=== PATIENT | female | born 1985 | race Caucasian/White ===

== ENCOUNTER 2016-09-17 15:51 | Emergency (ER) | payer OTHER ==
[2016-09-17 18:36] LABS: Hematocrit 41 % (35-47); Hemoglobin 13.3 g/dl (12.0-16.0); Mean Corpuscular HGB Conc 33 g/dl (31-36); Mean Corpuscular Hemoglobin 32 pg (27-31); Mean Corpuscular Volume 97 fL (80-97); Mean Platelet Volume 10 um3 (7.4-10.4); Red Blood Count 4.16 10^6/ul (4.0-5.4); Red Cell Distribution Width 13 % (10.5-15)
[2016-09-17 18:50] LABS: ALT 13 U/L (7-52); AST 12 U/L (13-39); Albumin 4.8 g/dL (3.2-5.2); Alkaline Phosphatase 56 U/L (34-104); Anion Gap 6 mmol/L (2-11); BUN/Creatinine Ratio 10.7 (8-20); Blood Urea Nitrogen 8 mg/dL (6-24); C Reactive Protein < 1.00 mg/L (< 5.00); CO2 Carbon Dioxide 25 mmol/L (22-32); Calcium 9.6 mg/dL (8.6-10.3); Chloride 104 mmol/L (101-111); EGFR African American 116.7 (>60); EGFR Non-African American 90.7 (>60); Globulin 2.4 g/dL (2-4); Glucose 99 mg/dL (70-100); Lipase 23 U/L (11.0-82.0); Potassium 3.9 mmol/L (3.5-5.0); Sodium 135 mmol/L (133-145); Total Protein 7.2 g/dL (6.4-8.9)
[2016-09-17] MEDS ORDERED: oxyCODONE TAB* 5 MG TAB PO ONE ×3 (22:07→23:51)
[2016-09-18 00:06] VITALS: BP 98/62
--- NOTE | 2016-09-18 01:27 | ED ---
I, Oh,Soohyun, scribed for Shawn Blandon MD on 09/17/16 at 2204 . Abdominal Pain/Female - HPI Summary HPI Summary: This 30 y/o female presents to ED for bilat lower abd pain since 2 days ago. Onset of pain was suddent. Positive mild bloating, decreased appetite, or nausea. Negative diarrhea or dysuria. Bumps on road on ride makes pain worse. PMHx includes ovarian cysts, endometriosis, bipolar, anxiety, and PTSD. Pt has not taken any pain med to control pain due to her allergies to NSAIDs. PSHx includes hysterectomy in 01/30/2016. Ovarians are intact. FHx is positive for ovarian cyst. - History of Current Complaint Chief Complaint: EDAbdPain Stated Complaint: PELVIC/ABD PAIN Time Seen by Provider: 09/17/16 21:54 Hx Obtained From: Patient, Medical Records Hx Last Menstrual Period: 09/12/13 Onset/Duration: Sudden Onset, Still Present Pain Intensity: 8 Pain Scale Used: 0-10 Numeric Location: Discrete At: RLQ, Discrete At: LLQ Character: Dull Aggravating Factor(s): Nothing Alleviating Factor(s): Nothing Associated Signs and Symptoms: Positive: Nausea. Negative: Fever, Vomiting, Diarrhea Allergies/Adverse Reactions: Allergies Allergy/AdvReac Type Severity Reaction Status Date / Time NSAIDs Allergy See Comment Verified 09/17/16 15:59 STEROIDS AdvReac DEPRESSION Uncoded 09/17/16 15:58 PMH/Surg Hx/FS Hx/Imm Hx Endocrine/Hematology History: Reports: Hx Thyroid Disease Denies: Hx Anticoagulant Therapy, Hx Diabetes Cardiovascular History: Denies: Hx Hypertension, Hx Pacemaker/ICD Respiratory History: Denies: Hx Asthma, Hx Chronic Obstructive Pulmonary Disease (COPD) GI History: Comment Only: Other GI Disorders - UNCONFRMED REMOTE HISTORY OF IBS History: Denies: Hx Renal Disease Sensory History: Reports: Hx Contacts or Glasses - Patient wears contacts Opthamlomology History: Reports: Hx Contacts or Glasses - Patient wears contacts Neurological History: Denies: Hx Dementia, Hx Seizures Psychiatric History: Reports: Hx Anxiety, Hx Attention Deficit Hyperactivity Disorder, Hx Depression, Hx Bipolar Disorder, Hx Suicide Attempt - twice by overdose, once by cutting wrist, last time overdose last week, Hx Substance Abuse Denies: Hx Eating Disorder - Surgical History Surgery Procedure, Year, and Place: tonsilectomy unsure of date, childhood. laparoscopic uterine proceedure - Immunization History Date of Tetanus Vaccine: unknown Infectious Disease History: No Infectious Disease History: Denies: Hx Hepatitis, Hx Human Immunodeficiency Virus (HIV), Traveled Outside the [place] in Last 30 Days - Social History Alcohol Use: None Substance Use Type: Reports: None Smoking Status (MU): Never Smoked Tobacco Review of Systems Positive: Chills Positive: Abdominal Pain - bilat lower abd pain, Nausea. Negative: Vomiting, Diarrhea Negative: dysuria Positive: Other - chronic back pain All Other Systems Reviewed And Are Negative: Yes Physical Exam - Summary Physical Exam Summary: The patient is well-nourished in no acute distress and in no acute pain. The skin is warm and dry and skin color reflects adequate perfusion. HEENT: The head is normocephalic and atraumatic. The pupils are equal and reactive. The conjunctivae are clear and without drainage. Nares are patent and without drainage. Mouth reveals moist mucous membranes and the throat is without erythema and exudate. The external ears are intact. The ear canals are patent and without drainage. The tympanic membranes are intact. Neck is supple with full range of motion and non-tender. There are no carotid bruits. There is no neck vein distension. Respiratory: Chest is non-tender. Lungs are clear to auscultation and breath sounds are symmetrical and equal. Cardiovascular: Heart is regular rate and rhythm. There is no murmur or rub auscultated. There is no peripheral edema and pulses are symmetrical and equal. Abdomen: The abdomen is soft and TENDER over both ovaries. There are normal bowel sounds heard in all four quadrants and there is no organomegaly palpated. Musculoskeletal: There is no back pain noted. Extremities are non-tender with full range of motion. There is good capillary refill. There is no peripheral edema or calf tenderness elicited. Neurological: Patient is alert and oriented to person, place and time. The patient has symmetrical motor strength in all four extremities. Cranial nerves are grossly intact. Deep tendon reflexes are symmetrical and equal in all four extremities. Psychiatric: The patient has an appropriate affect and does not exhibit any anxiety or depression. Triage Information Reviewed: Yes Vital Signs On Initial Exam: Initial Vitals Temp Pulse Resp BP Pulse Ox 99.0 F 46 16 98/66 100 09/17/16 15:59 09/17/16 15:59 08/07/17 15:59 09/17/16 15:59 09/17/16 15:59 Vital Signs Reviewed: Yes - [place] Coma Scale Coma Scale Total: 15 Diagnostics - Vital Signs Vital Signs Temp Pulse Resp BP Pulse Ox 09/17/16 21:48 98.5 F 46 16 105/61 99 09/17/16 20:30 98.6 F 51 16 108/63 100 09/17/16 18:15 98.6 F 47 12 110/66 100 09/17/16 15:59 99.0 F 46 16 98/66 100 - Laboratory Lab Results: Lab Results 09/17/16 09/17/16 09/17/16 Range/Units 18:27 18:27 18:27 WBC 12.0 H (3.5-10.8) 10^3/ul RBC 4.16 (4.0-5.4) 10^6/ul Hgb 13.3 (12.0-16.0) g/dl Hct 41 (35-47) % MCV 97 (80-97) fL MCH 32 H (27-31) pg MCHC 33 (31-36) g/dl RDW 13 (10.5-15) % Plt Count 250 (150-450) 10^3/ul MPV 10 (7.4-10.4) um3 Neut % (Auto) 75.1 (38-83) % Lymph % (Auto) 17.5 L (25-47) % [place] % (Auto) 5.0 (1-9) % Eos % (Auto) 1.9 (0-6) % Baso % (Auto) 0.5 (0-2) % Absolute Neuts (auto) 9.1 H (1.5-7.7) 10^3/ul Absolute Lymphs (auto) 2.1 (1.0-4.8) 10^3/ul Absolute Monos (auto) 0.6 (0-0.8) 10^3/ul Absolute Eos (auto) 0.2 (0-0.6) 10^3/ul Absolute Basos (auto) 0.1 (0-0.2) 10^3/ul Absolute Nucleated RBC 0 10^3/ul Nucleated RBC % 0 Sodium 135 (133-145) mmol/L Potassium 3.9 (3.5-5.0) mmol/L Chloride 104 (101-111) mmol/L Carbon Dioxide 25 (22-32) mmol/L Anion Gap 6 (2-11) mmol/L BUN 8 (6-24) mg/dL Creatinine 0.75 (0.51-0.95) mg/dL Est GFR ( Amer) 116.7 (>60) Est GFR (Non-Af Amer) 90.7 (>60) BUN/Creatinine Ratio 10.7 (8-20) Glucose 99 (70-100) mg/dL Lactic Acid 0.5 (0.5-2.0) mmol/L Calcium 9.6 (8.6-10.3) mg/dL Total Bilirubin 0.40 (0.2-1.0) mg/dL AST 12 L (13-39) U/L ALT 13 (7-52) U/L Alkaline Phosphatase 56 (34-104) U/L C-Reactive Protein < 1.00 (< 5.00) mg/L Total Protein 7.2 (6.4-8.9) g/dL Albumin 4.8 (3.2-5.2) g/dL Globulin 2.4 (2-4) g/dL Albumin/Globulin Ratio 2.0 (1-3) Lipase 23 (11.0-82.0) U/L Result Diagrams: 09/17/16 18:27 09/17/16 18:27 Lab Statement: Any lab studies that have been ordered have been reviewed, and results considered in the medical decision making process. - Additional Comments Diagnostic Additional Comments: Pelvic US -- Extensive bowel in pelvic region. Re-Evaluation - Re-Evaluation First Eval Re-Evaluation Time: 23:25 Comment: MD in room to re-evaluate pt. Pain is improved at this moment Abdominal Pain Fem Course/Dx - Course Course Of Treatment: This 30 y/o female presents to ED for bilat lower abd pain since 2 days ago. PMHx is significant for known ovarian cyst. Upon examination pt is noted with tenderness over both ovaries. US Pelvis is taken to r/o any new etiology, and indicated NAD. Pt is given oxycodone during ED visit, and pain is improved. Pt requests discharge. - Diagnoses Differential Diagnosis: Positive: Ovarian Cyst, Other - torsion Provider Diagnoses: Pelvic pain Discharge - Discharge Plan Condition: Stable Disposition: HOME Prescriptions: oxyCODONE TAB* [Roxycodone TAB 5 mg*] 5 mg PO Q6H PRN #20 tab MDD 4 PRN Reason: pain Patient Education Materials: Oxycodone/Acetaminophen (By mouth), Pelvic Pain in Women (ED) Referrals: Wes Pan DO [Primary Care Provider] - 2 Days The documentation as recorded by the Kale lópez Soohyun accurately reflects the service I personally performed and the decisions made by me, Shawn Blandon MD.
--- NOTE | 2016-09-18 07:39 | RAD ---
HISTORY: Pelvic pain, status post hysterectomy COMPARISONS: None TECHNIQUE: Multiple transverse and longitudinal ultrasound images were obtained of the pelvis using grayscale, color Doppler, and spectral Doppler imaging using the transabdominal transducer. FINDINGS: UTERUS: The patient is status post partial hysterectomy. The cervical remnant demonstrates nabothian cyst measuring 0.9 x 0.7 x 0.8 cm. ENDOMETRIUM: The patient is status post hysterectomy. CUL-DE-SAC: There is no free fluid within the cul-de-sac. RIGHT OVARY: The right ovary measures 4 x 3 x 2.1 cm. Normal arterial and venous waveforms are identifiable within the ovary on spectral Doppler imaging. LEFT OVARY: The left ovary measures 1.7 x 1.4 x 2.6 cm. Normal arterial and venous waveforms are identifiable within the ovary on spectral Doppler imaging. BLADDER: The visualized bladder is unremarkable. IMPRESSION: 1. STATUS POST HYSTERECTOMY. 2. NO SONOGRAPHIC FEATURES OF TORSION. PLEASE NOTE THAT PARTIAL OR INTERMITTENT TORSION MAY BE SONOGRAPHICALLY NORMAL.
== END 2016-09-18 00:06 | disposition home or self-care (01) ==
LOC: ED 15:51
DX: R10.2 Pelvic and perineal pain (principal); R10.30 Lower abdominal pain, unspecified; M54.9 Dorsalgia, unspecified
CPT/HCPCS: 36415; 76856; 80053; 83605; 83690; 85025; 86140; 99283; A9270-GY

== ENCOUNTER 2018-03-18 11:15 | Inpatient (IN) | payer OTHER ==
[2018-03-18] MEDS ORDERED: Charcoal ACTIVATED* 25 GM/120 ML BTL PO ONE (11:22)
--- NOTE | 2018-03-18 11:22 | ED ---
Substance Abuse/Use - HPI Summary HPI Summary: A 32 y/o female brought in by [facility] presents to [facility] with a chief complaint of a suicide attempt by overdosing on 24 pills of 50 mg Trazodone at 07:00 03/18/18. Per EMS, poison control was notified. The patient arrived in the ED at 11:15 03/18/18. The patient was recently at [facility] for a previous suicide attempt. She has cuts on the right side of her neck from a previous attempt. She reports that previously she was just going crazy but this past time she wanted to kill herself. She reports taking [place] the night of 03/16/18. She recently skipped taking her Seroquel. She has a Hx of split personality, bipolar and anxiety. She denies SOB. SHx hysterectomy. She denies smoking, alcohol or drug use. She has a FHx of depression and DM but denies a FHx of HTN or HLD. - History Of Current Complaint Stated Complaint: OVERDOSE , LACERATIONS,941 Hx Obtained From: Patient, EMS Hx Last Menstrual Period: 09/12/13 Onset/Duration of Drug/ETOH Abuse: Hours Ingestion History: Type/Name Of Drug - Trazodone, Amount Ingested - 24 50mg pills Overdose Characteristics: Oral Timing Of Abuse: Binge Use Severity Currently: Moderate Character: Depressed Aggravating Factor(s): Nothing Alleviating Factor(s): Nothing Associated Signs And Symptoms: Negative - SOB, Other: - SI Related Hx: Prior Psych Admission - Allergies/Home Medications Allergies/Adverse Reactions: Allergies Allergy/AdvReac Type Severity Reaction Status Date / Time NSAIDS (Non-Steroidal Allergy See Comment Verified 03/18/18 11:42 Anti-Inflamma STEROIDS AdvReac DEPRESSION Uncoded 03/18/18 11:42 Home Medications: Home Medications Docusate Sodium [Doc-Q-Lace] 1 cap PO BID 03/18/18 [History Confirmed 03/18/18] Fluoxetine HCl [Prozac] 1 cap PO DAILY 03/18/18 [History Confirmed 03/18/18] [place] Carbonate TAB* 300 mg PO TID 03/18/18 [History Confirmed 03/18/18] QUEtiapine TAB* [Seroquel 25 MG TAB*] 25 mg PO BEDTIME 03/18/18 [History Confirmed 03/18/18] Topiramate 25 mg PO BID 03/18/18 [History Confirmed 03/18/18] PMH/Surg Hx/FS Hx/Imm Hx Endocrine/Hematology History: Reports: Hx Thyroid Disease Denies: Hx Anticoagulant Therapy, Hx Diabetes Cardiovascular History: Denies: Hx Hypercholesterolemia, Hx Hypertension, Hx Pacemaker/ICD Respiratory History: Denies: Hx Asthma, Hx Chronic Obstructive Pulmonary Disease (COPD) GI History: Comment Only: Other GI Disorders - UNCONFRMED REMOTE HISTORY OF IBS History: Denies: Hx Renal Disease Sensory History: Reports: Hx Contacts or Glasses - Patient wears contacts Opthamlomology History: Reports: Hx Contacts or Glasses - Patient wears contacts Neurological History: Denies: Hx Dementia, Hx Seizures Psychiatric History: Reports: Hx Anxiety, Hx Attention Deficit Hyperactivity Disorder, Hx Depression, Hx Bipolar Disorder, Hx Suicide Attempt - twice by overdose, once by cutting wrist, last time overdose last week, Hx Substance Abuse Denies: Hx Eating Disorder - Surgical History Surgery Procedure, Year, and Place: tonsilectomy unsure of date, childhood. laparoscopic uterine proceedure - Immunization History Date of Tetanus Vaccine: unknown Infectious Disease History: Denies: Hx Hepatitis, Hx Human Immunodeficiency Virus (HIV) - Family History Known Family History: Positive: Diabetes, Other - positive: depression Negative: Hypertension - Social History Alcohol Use: None Substance Use Type: Reports: None Smoking Status (MU): Never Smoked Tobacco Review of Systems Negative: Fever Negative: Shortness Of Breath Positive: Other - positive: lacerations right neck Psychological: Other - postitive: Suicide attempt taking 24 pills of 50 mg Trazodone All Other Systems Reviewed And Are Negative: Yes Physical Exam - Summary Physical Exam Summary: VITAL SIGNS: Reviewed. GENERAL: Patient is a well-developed and nourished FEMALE who is lying comfortable in the stretcher. Patient is not in any acute respiratory distress. HEAD AND FACE: No signs of trauma. No ecchymosis, hematomas or skull depressions. No sinus tenderness. EYES: PERRLA, EOMI x 2, No injected conjunctiva, no nystagmus. EARS: Hearing grossly intact. Ear canals and tympanic membranes are within normal limits. MOUTH: Oropharynx within normal limits. NECK: superficial cuts right side of neck Supple, trachea is midline, no adenopathy, no JVD, no carotid bruit, no c-spine tenderness, neck with full ROM. CHEST: Symmetric, no tenderness at palpation LUNGS: Clear to auscultation bilaterally. No wheezing or crackles. CVS: Regular rate and rhythm, S1 and S2 present, no murmurs or gallops appreciated. ABDOMEN: Soft, non-tender. No signs of distention. No rebound no guarding, and no masses palpated. Bowel sounds are normal. EXTREMITIES: FROM in all major joints, no edema, no cyanosis or clubbing. NEURO: Alert and oriented x 3. No acute neurological deficits. Speech is normal and follows commands. SKIN: Dry and warm Psych: Seems to be depressed, low self esteem Triage Information Reviewed: Yes Vital Signs On Initial Exam: Initial Vitals Temp Pulse Resp BP Pulse Ox 99.0 F 93 17 117/76 100 03/18/18 11:26 03/18/18 11:26 03/18/18 11:26 03/18/18 11:26 03/18/18 11:26 Vital Signs Reviewed: Yes Diagnostics - Laboratory Result Diagrams: 03/18/18 11:50 03/18/18 11:50 Lab Statement: Any lab studies that have been ordered have been reviewed, and results considered in the medical decision making process. - EKG 11:26 Cardiac Rate: NL - 66 bpm EKG Rhythm: Sinus Rhythm Summary of EKG Findings: Normal sinus rhythm at [address] elevation but slightly prolonged QT interval Re-Evaluation - Re-Evaluation First Eval Re-Evaluation Time: 16:50 Change: Improved Comment: Patient is medically cleared for MHE Course/Dx - Course Assessment/Plan: Blood work without any significant abnormality except for what was a count of 11.8. EKG shows a normal sinus rhythm without any ST elevation. Discussed the case with the poison control and they do not recommend any activity charcoal at this point. The recommended 2 g of magnesium and IV fluids. They also recommended to observe the patient for approximately 6 hours from the time of arrival. Patient will be medically clear at 5 PM. 5 PM the patient is medically clear. The patients alert and oriented 3 and she has no complaints. Patient is awaiting for mental health evaluation. This patient will be admitted to Dr. Gann with dx of psychosis. - Diagnoses Differential Diagnosis/HQI/PQRI: Positive: Anxiety, Other - OD, Suicidal ideation and Gesture Provider Diagnoses: Psychosis Discharge - Sign-Out/Discharge Documenting (check all that apply): Patient Departure - admit Patient Received Moderate/Deep Sedation with Procedure: No - Discharge Plan Condition: Stable Disposition: ADMITTED TO [facility] - Billing Disposition and Condition Condition: STABLE Disposition: Admitted to [facility] - Attestation Statements Document Initiated by Alvinibe: Yes Documenting Scribe: Danny Henao Provider For Whom Scribe is Documenting (Include Credential): Ismael Valenzuela MD Scribe Attestation: IDanny, scribed for Ismael Valenzuela MD on 03/18/18 at 2117. Scribe Documentation Reviewed: Yes Provider Attestation: The documentation as recorded by the Danny lópez accurately reflects the service I personally performed and the decisions made by , Ismael Valenzuela MD Status of Scribe Document: Viewed
[2018-03-18 12:03] LABS: Urine Appearance Cloudy; Urine Bilirubin Negative (Negative); Urine Blood Negative (Negative); Urine Color Yellow; Urine Glucose 1+(50 mg/dL) (Negative); Urine Ketones Negative (Negative); Urine Nitrite Negative (Negative); Urine Protein Negative (Negative); Urine Specific Gravity 1.016 (1.010-1.030); Urine Urobilinogen Negative (Negative)
[2018-03-18 12:10] LABS: ABS Basophils 0.1 10^3/ul (0-0.2); ABS Eosinophils 0 10^3/ul (0-0.6); ABS Lymphocytes 0.7 10^3/ul (1.0-4.8); ABS Monocytes 0.6 10^3/ul (0-0.8); ABS Neutrophils 10.4 10^3/ul (1.5-7.7); ABS Nucleated RBC 0 10^3/ul; Eosinophil % 0.1 %; Hematocrit 39 % (35-47); Hemoglobin 13.3 g/dl (12.0-16.0); Lymphocyte % 6.2 %; Mean Corpuscular HGB Conc 34 g/dl (31-36); Mean Corpuscular Hemoglobin 32 pg (27-31); Mean Corpuscular Volume 94 fL (80-97); Nucleated Red Blood Cells % 0; Platelet Count 208 10^3/ul (150-450); Red Blood Count 4.11 10^6/ul (4.00-5.40); Red Cell Distribution Width 13 % (10.5-15); White Blood Count 11.8 10^3/ul (3.5-10.8)
[2018-03-18 12:17] LABS: Barbiturates Urine Screen None Detected (None Detect); Benzodiazepine Urine Screen None Detected (None Detect); Urine Cannabinoids Screen None Detected (None Detect)
[2018-03-18] MEDS ORDERED: Magnesium Sulfate 2 GM IV* 2 GM/50 ML BAG IVPB ONE (12:25)
[2018-03-18 12:36] LABS: ALT 38 U/L (7-52); AST 21 U/L (13-39); Albumin 4.5 g/dL (3.2-5.2); Albumin/Globulin Ratio 2.1 (1-3); Alkaline Phosphatase 55 U/L (34-104); Anion Gap 11 mmol/L (2-11); BUN/Creatinine Ratio 25.4 (8-20); Blood Urea Nitrogen 17 mg/dL (6-24); CO2 Carbon Dioxide 23 mmol/L (22-32); Calcium 9.4 mg/dL (8.6-10.3); Chloride 103 mmol/L (101-111); EGFR African American 123.4 (>60); Globulin 2.1 g/dL (2-4); Glucose 99 mg/dL (70-100); Potassium 3.5 mmol/L (3.5-5.0); Sodium 137 mmol/L (135-145); Total Protein 6.6 g/dL (6.4-8.9)
[2018-03-18 12:49] LABS: Acetaminophen < 15 mcg/mL; Alcohol < 10 mg/dL (<10); Lithium < 0.10 mmol/L (0.6-1.2); Salicylate < 2.50 mg/dL (<30)
[2018-03-18] MEDS: NS 0.9% 1000 ML** 2,000 ML IV ONE ×2 (13:25→14:18)
[2018-03-18] MEDS ORDERED: Al Hydrox/Mg Hydrox/Simet LIQ* 30 ML UDC PO PRN (20:39)
[2018-03-18] MEDS ORDERED: risperiDONE TAB* 1 MG PO SCH (21:30)
[2018-03-18] MEDS: Lithium Carbonate TAB* 300 MG PO SCH (21:48)
[2018-03-18] MEDS: Docusate CAP* 100 MG PO SCH (21:50)
[2018-03-18] MEDS: Topiramate TAB(*) 25 MG PO SCH (21:50)
[2018-03-18] MEDS: traZODone TAB* 100 MG PO SCH ×2 (21:50→22:13)
[2018-03-18] MEDS: Acetaminophen TAB* 325 MG PO PRN (21:58)
[2018-03-19] MEDS: Docusate CAP* 100 MG PO SCH ×2 (08:53→21:24)
[2018-03-19] MEDS: Multivitamins/Minerals TAB PO SCH (08:53)
[2018-03-19] MEDS: Lithium Carbonate TAB* 300 MG PO SCH ×3 (08:53→21:24)
[2018-03-19] MEDS: Topiramate TAB(*) 25 MG PO SCH ×2 (08:54→21:24)
[2018-03-19] MEDS ORDERED: FLUoxetine CAP* 20 MG PO SCH (09:00)
--- NOTE | 2018-03-19 11:39 | PN ---
MHU: Group Therapy Note - Service Type Service Type: [id number] Group Psychotherapy - Cognitive Behavioral Group Therapy ( CBT):Patient was attentive and participatory in CBT programming this morning, and remained in good behavioral control. Patient expressed positive insights regarding relevant treatment interventions and goals.
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
[2018-03-19] MEDS ORDERED: ARIPiprazole TAB* 5 MG PO SCH (12:00)
--- NOTE | 2018-03-19 16:02 | PN ---
MHU: Group Therapy Note - Service Type Service Type: [id number] Group Psychotherapy - Medication Education Group: Patient was attentive and participatory in group, and remained in good behavioral control. Patient expressed positive insights regarding relevant treatment interventions. Patient stated understanding of material discussed and had appropriate questions.
[2018-03-19] MEDS: Mirtazapine TAB* 15 MG PO PRN (21:25)
[2018-03-20 07:15] LABS: Cholesterol 118 mg/dL; HDL Cholesterol 52.4 mg/dL; LDL Cholesterol 58 mg/dL; Triglycerides 37 mg/dL
[2018-03-20 07:23] LABS: HCG Pregnancy < 0.60 mIU/mL
[2018-03-20 07:32] LABS: Lithium 0.33 mmol/L (0.6-1.2)
[2018-03-20] MEDS: Lithium Carbonate TAB* 300 MG PO SCH ×3 (09:01→21:10)
[2018-03-20] MEDS: Topiramate TAB(*) 25 MG PO SCH ×2 (09:01→21:10)
[2018-03-20] MEDS: Docusate CAP* 100 MG PO SCH ×2 (09:01→21:10)
[2018-03-20] MEDS: Multivitamins/Minerals TAB PO SCH (09:02)
[2018-03-20] MEDS ORDERED: Lithium Carbonate TAB* 300 MG PO SCH (10:00)
--- NOTE | 2018-03-20 11:23 | PN ---
Subjective - Subjective Date of Service: 03/20/18 Service Type: 16730 Hosp care 25 min moderate complexity Subjective: Nursing Report: Patient was visible on unit, no chemical restraints or PRNs. Slept overnight without incident. Attending group. CC: "I am doing better Patient was seen and evaluated by brief writer today in the day room. She woke up and did yoga today. She reported not having a better appetite and slept well overnight. She reported feeling somewhat groggy yesterday. The patient reports attending and participating in day groups. Per nursing no behavioral issues or overnight events reported. She denied auditory and or visual hallucinations. She reported feeling safe on the unit. She reported that she was only taking 300mg lithium a day before admission and that could explain her low lithium levels. Objective - Appearance Dysmorphic Features: No Hygiene: Normal Grooming: Well Kept - Behavior Psychomotor Activities: Normal Exhibits Abnormal Movement: No - Attitude and Relatedness Attitude and Relatedness: Cooperative Eye Contact: Fair - Speech Quality: Unpressured Latencies: Normal Quantity: Appropriate - Mood Patient's Decription of Mood: "Good" - Affect Observed Affect: Non-labile Affect Consistent with: Euthymia - Thought Process Patient's Thought Process: Goal Directed Thought Content: No Passive Wish, No Suicidal Planning, No Homicidal Ideation, No Paranoid Ideation - Sensorium Experiencing Hallucinations: No, Sensorium is Clear Type of Hallucinations: Visual: No, Auditory: No, Command: No - Level of Consciousness Level of Consciousness: Alert Orientation: Yes Intact, Yes Orientated to Time, Yes Orientated to Place, Yes Orientated to Person - Impulse Control Impulse Control: Poor - Insight and Judgement Insight and Judgement: Fair - Group Participation Particating in Group Activities: Yes - Medication Management Medication Management Adherence: Yes Assessment - Assessment Clinical Impression: Assessment: 32year old single female with history of bipolar I disorder and PTSD came to the hospital after a suicide attempt and was admitted to the BSU at [facility]. She has been attending group and has shown some clinical response to treatment Plan - Plan Treatment Plan: Name: INDIRA ELKINS Birthdate: 1985 [id number] # Justification for Admission: For immediate safety # Voluntary admission. The patient requires inpatient admission at this time to assure safety, receive treatment and work toward stabilization. #Change abilify 5mg PO to bedtime #Continue remeron 15mg qhs. #Continue lithium 300mg TID #Continue topiramate 25mg BID #[place] level 0.33 will recheck Saturday #Q30 observation #Admit to BSU, Q15 minute observation. Start regular diet. Encourage participation in activities on the milieu. # Plan to obtain collateral from mother once release is signed. #Goals before discharge include: Improve sleep. Stopping auditory hallucinations and suicidal ideation. Laboratory Results - last 24 hr 03/20/18 03/20/18 06:47 06:47 Hemoglobin A1c 4.5 Triglycerides 37 Cholesterol 118 LDL Cholesterol 58 HDL Cholesterol 52.4 Beta HCG, Quant < 0.60 [place] 0.33 L Continued Medication Management: Start Medication Medications: Current Medications Acetaminophen (Tylenol Tab*) 650 mg PO Q4H PRN PRN Reason: PAIN; OR TEMP >101 Last Admin: 03/18/18 21:58 Dose: 650 mg Al Hydrox/Mg Hydrox/Simethicone (Maalox Plus*) 30 ml PO Q4H PRN PRN Reason: INDIGESTION Aripiprazole (Abilify Tab*) 5 mg PO BEDTIME [facility] Docusate Sodium (Colace Cap*) 100 mg PO BID [facility] Last Admin: 03/20/18 09:01 Dose: 100 mg [place] Carbonate ([place] Carbonate Tab*) 300 mg PO TID [facility] Last Admin: 03/20/18 09:01 Dose: 300 mg Mirtazapine (Remeron Tab*) 15 mg PO BEDTIME PRN PRN Reason: SLEEP Last Admin: 03/19/18 21:25 Dose: 15 mg Multivitamins/Minerals (Theragran/Minerals Tab*) 1 tab PO DAILY [facility] Last Admin: 03/20/18 09:02 Dose: 1 tab Topiramate (Topamax(*)) 25 mg PO BID [facility] Last Admin: 03/20/18 09:01 Dose: 25 mg - Discharge Plan Discharge Plan: Inpatient Hospitalization
--- NOTE | 2018-03-20 13:13 | PN ---
MHU: Group Therapy Note - Service Type Service Type: 48438 Group Psychotherapy - Cognitive Behavioral Group Therapy ( CBT):Patient was attentive and participatory in CBT programming this morning, and remained in good behavioral control. Patient expressed positive insights regarding relevant treatment interventions and goals.
[2018-03-20] MEDS ORDERED: ARIPiprazole TAB* 5 MG PO SCH (21:00)
[2018-03-20] MEDS: Mirtazapine TAB* 15 MG PO PRN (21:10)
[2018-03-21] MEDS: Docusate CAP* 100 MG PO SCH ×2 (08:57→20:07)
[2018-03-21] MEDS: Lithium Carbonate TAB* 300 MG PO SCH ×3 (08:57→20:07)
[2018-03-21] MEDS: Topiramate TAB(*) 25 MG PO SCH ×2 (08:57→20:07)
[2018-03-21] MEDS: Multivitamins/Minerals TAB PO SCH (08:57)
--- NOTE | 2018-03-21 11:39 | PN ---
Subjective - Subjective Date of Service: 03/21/18 Service Type: 30661 Hosp care 25 min moderate complexity Subjective: Nursing Report: Patient was visible on unit, no chemical restraints or PRNs. Slept overnight without incident. Attending group. CC: "I am okay Patient was seen and evaluated by telegraphic typewriter installer today in the day room. She reported that she refused the abilify last night because it is not right for her. She reported having a adequate appetite and slept well overnight. The patient reports attending and participating in day groups. Per nursing no behavioral issues or overnight events reported. She denied auditory and or visual hallucinations. She reported feeling safe on the unit. Objective - Appearance Dysmorphic Features: No Hygiene: Normal Grooming: Well Kept - Behavior Psychomotor Activities: Normal Exhibits Abnormal Movement: No - Attitude and Relatedness Attitude and Relatedness: Cooperative Eye Contact: Fair - Speech Quality: Unpressured Latencies: Normal Quantity: Appropriate - Mood Patient's Decription of Mood: "Good" - Affect Observed Affect: Non-labile Affect Consistent with: Euthymia - Thought Process Patient's Thought Process: Goal Directed Thought Content: No Passive Wish, No Suicidal Planning, No Homicidal Ideation, No Paranoid Ideation - Sensorium Experiencing Hallucinations: No, Sensorium is Clear Type of Hallucinations: Visual: No, Auditory: No, Command: No - Level of Consciousness Level of Consciousness: Alert Orientation: Yes Intact, Yes Orientated to Time, Yes Orientated to Place, Yes Orientated to Person - Impulse Control Impulse Control: Intact - Insight and Judgement Insight and Judgement: Fair - Group Participation Particating in Group Activities: Yes - Medication Management Medication Management Adherence: Yes Assessment - Assessment Clinical Impression: Assessment: 32year old single female with history of bipolar I disorder and PTSD came to the hospital after a suicide attempt and was admitted to the BSU at [facility]. She has been attending group and has shown some clinical response to treatment Plan - Plan Treatment Plan: Name: INDIRA ELKINS Birthdate: 1985 [id number] # Justification for Admission: For immediate safety # Voluntary admission. The patient requires inpatient admission at this time to assure safety, receive treatment and work toward stabilization. #D/C abilify #Start Haldol 2mg at bedtime #Continue remeron 15mg qhs. #Continue lithium 300mg TID #Continue topiramate 25mg BID #[place] level 0.33 will recheck Saturday #Q30 observation #Staff pass #Goals before discharge include: Improve sleep. Stopping auditory hallucinations and suicidal ideation. Laboratory Results - last 24 hr 03/20/18 03/20/18 06:47 06:47 Hemoglobin A1c 4.5 Triglycerides 37 Cholesterol 118 LDL Cholesterol 58 HDL Cholesterol 52.4 Beta HCG, Quant < 0.60 [place] 0.33 L Continued Medication Management: Start Medication Medications: Current Medications Acetaminophen (Tylenol Tab*) 650 mg PO Q4H PRN PRN Reason: PAIN; OR TEMP >101 Last Admin: 03/18/18 21:58 Dose: 650 mg Al Hydrox/Mg Hydrox/Simethicone (Maalox Plus*) 30 ml PO Q4H PRN PRN Reason: INDIGESTION Aripiprazole (Abilify Tab*) 5 mg PO BEDTIME [facility] Last Admin: 03/20/18 21:11 Dose: Not Given Docusate Sodium (Colace Cap*) 100 mg PO BID [facility] Last Admin: 03/21/18 08:57 Dose: 100 mg [place] Carbonate ([place] Carbonate Tab*) 300 mg PO TID [facility] Last Admin: 03/21/18 08:57 Dose: 300 mg Mirtazapine (Remeron Tab*) 15 mg PO BEDTIME PRN PRN Reason: SLEEP Last Admin: 03/20/18 21:10 Dose: 15 mg Multivitamins/Minerals (Theragran/Minerals Tab*) 1 tab PO DAILY [facility] Last Admin: 03/21/18 08:57 Dose: 1 tab Topiramate (Topamax(*)) 25 mg PO BID [facility] Last Admin: 03/21/18 08:57 Dose: 25 mg - Discharge Plan Discharge Plan: Inpatient Hospitalization
[2018-03-21] MEDS: Haloperidol TAB* 1 MG PO SCH (20:07)
[2018-03-22] MEDS: Lithium Carbonate TAB* 300 MG PO SCH ×3 (08:45→21:01)
[2018-03-22] MEDS: Topiramate TAB(*) 25 MG PO SCH ×2 (08:45→21:00)
[2018-03-22] MEDS: Docusate CAP* 100 MG PO SCH ×2 (08:45→21:00)
[2018-03-22] MEDS: Multivitamins/Minerals TAB PO SCH (08:45)
[2018-03-22] MEDS: Haloperidol TAB* 1 MG PO SCH (21:02)
[2018-03-23] MEDS: Multivitamins/Minerals TAB PO SCH (08:27)
[2018-03-23] MEDS: Lithium Carbonate TAB* 300 MG PO SCH ×3 (08:27→21:01)
[2018-03-23] MEDS: Docusate CAP* 100 MG PO SCH ×2 (08:27→21:00)
[2018-03-23] MEDS: Topiramate TAB(*) 25 MG PO SCH ×2 (08:28→21:00)
[2018-03-23] MEDS: Acetaminophen TAB* 325 MG PO PRN (08:28)
--- NOTE | 2018-03-23 19:09 | PN ---
Subjective - Subjective Date of Service: 03/23/18 Service Type: 86302 Hosp care 15 min low complexity Subjective: Indira reports that her thoughts are mostly clear with some paranoia still there. She doesn't want to continue to take Haldol and would like to work things out with her outpatient psychiatrist after discharge. Denies any hallucinations, SI or HI. Objective - Appearance Appearance: Healthy Appearing Dysmorphic Features: No Hygiene: Normal Grooming: Fairly Well Kept - Behavior Psychomotor Activities: Normal Exhibits Abnormal Movement: No - Attitude and Relatedness Attitude and Relatedness: Cooperative Eye Contact: Fair - Speech Quality: Unpressured Latencies: Normal Quantity: Appropriate - Mood Patient's Decription of Mood: "Okay" - Affect Observed Affect: Non-labile Affect Consistent with: Euthymia - Thought Process Patient's Thought Process: Coherent, Goal Directed Thought Content: No Passive Wish, No Suicidal Planning, No Homicidal Ideation, No Paranoid Ideation - Sensorium Experiencing Hallucinations: No, Sensorium is Clear Type of Hallucinations: Visual: No, Auditory: No, Command: No - Level of Consciousness Level of Consciousness: Alert Orientation: Yes Intact, Yes Orientated to Time, Yes Orientated to Place, Yes Orientated to Person - Impulse Control Impulse Control: Tenuous - Insight and Judgement Insight and Judgement: Poor - Group Participation Particating in Group Activities: Yes - Medication Management Medication Management Adherence: Partial Assessment - Assessment Merits Inpatient Hospitalization: For Immediate Safety, For Stabilization, For Ongoing Evaluation Clinical Impression: Assessment: 32year old single female with history of bipolar I disorder and PTSD came to the hospital after a suicide attempt and was admitted to the BSU at [facility]. She has been attending group and has shown some clinical response to treatment Plan - Plan Treatment Plan: Name: INDIRA ELKINS Birthdate: 1985 [id number] # Justification for Admission: For immediate safety # Voluntary admission. The patient requires inpatient admission at this time to assure safety, receive treatment and work toward stabilization. #D/C abilify #Start Haldol 2mg at bedtime #Continue remeron 15mg qhs. #Continue lithium 300mg TID #Continue topiramate 25mg BID #[place] level 0.33 will recheck Saturday #Q30 observation #Staff pass #Goals before discharge include: Improve sleep. Stopping auditory hallucinations and suicidal ideation. Laboratory Results - last 24 hr 03/20/18 03/20/18 06:47 06:47 Hemoglobin A1c 4.5 Triglycerides 37 Cholesterol 118 LDL Cholesterol 58 HDL Cholesterol 52.4 Beta HCG, Quant < 0.60 [place] 0.33 L Continued Medication Management: Continue Outpt Medication Medications: Current Medications Acetaminophen (Tylenol Tab*) 650 mg PO Q4H PRN PRN Reason: PAIN; OR TEMP >101 Last Admin: 03/23/18 08:28 Dose: 650 mg Al Hydrox/Mg Hydrox/Simethicone (Maalox Plus*) 30 ml PO Q4H PRN PRN Reason: INDIGESTION Docusate Sodium (Colace Cap*) 100 mg PO BID [facility] Last Admin: 03/23/18 08:27 Dose: 100 mg Haloperidol (Haldol Tab*) 2 mg PO BEDTIME [facility] Last Admin: 03/22/18 21:02 Dose: Not Given [place] Carbonate ([place] Carbonate Tab*) 300 mg PO TID [facility] Last Admin: 03/23/18 15:22 Dose: 300 mg Mirtazapine (Remeron Tab*) 15 mg PO BEDTIME PRN PRN Reason: SLEEP Last Admin: 03/20/18 21:10 Dose: 15 mg Multivitamins/Minerals (Theragran/Minerals Tab*) 1 tab PO DAILY [facility] Last Admin: 03/23/18 08:27 Dose: 1 tab Topiramate (Topamax(*)) 25 mg PO BID [facility] Last Admin: 03/23/18 08:28 Dose: 25 mg - Discharge Plan Discharge Plan: Outpatient Follow Up Outpatient Program: [facility]
[2018-03-23] MEDS: Haloperidol TAB* 1 MG PO SCH (21:01)
[2018-03-24] MEDS: Multivitamins/Minerals TAB PO SCH (09:23)
[2018-03-24] MEDS: Docusate CAP* 100 MG PO SCH ×2 (09:23→21:37)
[2018-03-24] MEDS: Topiramate TAB(*) 25 MG PO SCH ×2 (09:24→21:37)
[2018-03-24] MEDS: Lithium Carbonate TAB* 300 MG PO SCH ×2 (09:26→21:37)
[2018-03-24] MEDS: CMC:Lactase Enzyme (NF) 3,000 UNIT TAB PO SCH ×3 (09:28→16:50)
--- NOTE | 2018-03-24 10:03 | PN ---
Subjective - Subjective Date of Service: 03/24/18 Service Type: 85034 Hosp care 25 min moderate complexity Subjective: Nursing Report: Patient was visible on unit, no chemical restraints or PRNs. Slept overnight without incident. Attending group. CC: "Okay Patient was seen and evaluated by typewriters functional tester today in the day room. She reported that she doesnt think that the haldol is good for her and would like to stay just on lithium. She reported having a reminder of triggers for a past trauma she experienced and was able to deflect getting worked up over it. She would like to return to [facility] after discharge. She is requesting a diet that is lactose free. Her family came to visit over the weekend and the visit went well. She reported having a adequate appetite and slept well overnight. The patient reports attending and participating in day groups. Per nursing no behavioral issues or overnight events reported. She denied auditory and or visual hallucinations. She reported feeling safe on the unit. She denied fever, muscle stiffness. Objective - Appearance Dysmorphic Features: No Hygiene: Normal Grooming: Fairly Well Kept - Behavior Psychomotor Activities: Normal Exhibits Abnormal Movement: No - Attitude and Relatedness Attitude and Relatedness: Guarded Eye Contact: Fair - Speech Quality: Unpressured Latencies: Long Quantity: Terse - Mood Patient's Decription of Mood: "Okay" - Affect Observed Affect: Constricted Affect Consistent with: Euthymia - Thought Process Patient's Thought Process: Impoverished Thought Content: No Passive Wish, No Suicidal Planning, No Homicidal Ideation, No Paranoid Ideation - Sensorium Experiencing Hallucinations: No, Sensorium is Clear Type of Hallucinations: Visual: No, Auditory: No, Command: No - Level of Consciousness Level of Consciousness: Alert Orientation: Yes Intact, Yes Orientated to Time, Yes Orientated to Place - Impulse Control Impulse Control: Impaired - Insight and Judgement Insight and Judgement: Fair - Group Participation Particating in Group Activities: Yes - Medication Management Medication Management Adherence: Partial Assessment - Assessment Clinical Impression: Assessment: 32year old single female with history of bipolar I disorder and PTSD came to the hospital after a suicide attempt and was admitted to the BSU at [facility]. She has been attending group and has shown some clinical response to treatment Plan - Plan Treatment Plan: Name: INDIRA ELKINS Birthdate: 1985 [id number] # Justification for Admission: For immediate safety # Voluntary admission. The patient requires inpatient admission at this time to assure safety, receive treatment and work toward stabilization. #D/C Abilify #D/C Haldol and Remeron #Lactose free diet #Change lithium 450mg BID #Continue topiramate 25mg BID #[place] level 0.47 #Q30 observation #Staff pass #Family meeting tentative for Tomorrow. Patient to return to [facility] after discharge #Goals before discharge include: Improve sleep. Stopping auditory hallucinations and suicidal ideation. Vital Signs Temp Pulse Resp BP Pulse Ox 99.3 F 85 14 109/71 99 03/24/18 07:41 03/24/18 07:41 03/24/18 07:41 03/24/18 07:41 03/24/18 07:41 03/24/18 07:54 [place] 0.47 L Sodium 137 mmol/L (135-145) 03/18/18 11:50 Potassium 3.5 mmol/L (3.5-5.0) 03/18/18 11:50 BUN 17 mg/dL (6-24) 03/18/18 11:50 Creatinine 0.67 mg/dL (0.51-0.95) 03/18/18 11:50 Hemoglobin A1c 4.5 % (4.0-5.6) 03/20/18 06:47 Calcium 9.4 mg/dL (8.6-10.3) 03/18/18 11:50 AST 21 U/L (13-39) 03/18/18 11:50 ALT 38 U/L (7-52) 03/18/18 11:50 Triglycerides 37 mg/dL 03/20/18 06:47 Cholesterol 118 mg/dL 03/20/18 06:47 LDL Cholesterol 58 mg/dL 03/20/18 06:47 Continued Medication Management: Continue Outpt Medication Medications: Current Medications Acetaminophen (Tylenol Tab*) 650 mg PO Q4H PRN PRN Reason: PAIN; OR TEMP >101 Last Admin: 03/23/18 08:28 Dose: 650 mg Al Hydrox/Mg Hydrox/Simethicone (Maalox Plus*) 30 ml PO Q4H PRN PRN Reason: INDIGESTION Docusate Sodium (Colace Cap*) 100 mg PO BID [facility] Last Admin: 03/24/18 09:23 Dose: 100 mg Lactase (Lactaid Fast Act (Nf)) 3,000 unit PO TID WITH MEALS [facility]; Protocol Last Admin: 03/24/18 09:28 Dose: Not Given [place] Carbonate ([place] Carbonate Tab*) 450 mg PO BID [facility] Last Admin: 03/24/18 09:26 Dose: 450 mg Multivitamins/Minerals (Theragran/Minerals Tab*) 1 tab PO DAILY [facility] Last Admin: 03/24/18 09:23 Dose: 1 tab Topiramate (Topamax(*)) 25 mg PO BID [facility] Last Admin: 03/24/18 09:24 Dose: 25 mg - Discharge Plan Discharge Plan: Inpatient Hospitalization
--- NOTE | 2018-03-24 11:50 | PN ---
MHU: Group Therapy Note - Service Type Service Type: 05738 Group Psychotherapy - Cognitive Behavioral Group Therapy ( CBT):Patient was attentive and participatory in CBT programming this morning, and remained in good behavioral control. Patient expressed positive insights regarding relevant treatment interventions and goals.
[2018-03-25] MEDS: CMC:Lactase Enzyme (NF) 3,000 UNIT TAB PO SCH ×3 (08:04→16:55)
[2018-03-25 08:16] VITALS: BP 118/79
[2018-03-25] MEDS: Lithium Carbonate TAB* 300 MG PO SCH ×2 (09:00→20:38)
[2018-03-25] MEDS: Topiramate TAB(*) 25 MG PO SCH ×2 (09:01→20:38)
[2018-03-25] MEDS: Docusate CAP* 100 MG PO SCH ×2 (09:01→20:38)
[2018-03-25] MEDS: Multivitamins/Minerals TAB PO SCH (09:01)
[2018-03-25] MEDS ORDERED: Mirtazapine TAB* 15 MG PO PRN (10:22)
--- NOTE | 2018-03-25 10:31 | PN ---
Subjective - Subjective Date of Service: 03/25/18 Service Type: 18349 Hosp care 25 min moderate complexity Subjective: Nursing Report: Patient was visible on unit, no chemical restraints or PRNs. Slept overnight without incident. Attending group. CC: "I am doing well Patient was seen and evaluated by job specification writer today in the day room eating breakfast. She reported how important it is to stay on lithium because it is what make her think clear. Yesterday she attended a trauma report group and was able to tolerate the stresses of being reminded of past events in her life. Her family came to visit and the visit went well. She reported having a adequate appetite and slept well overnight. The patient reports attending and participating in day groups. Per nursing no behavioral issues or overnight events reported. She denied auditory and or visual hallucinations. She reported feeling safe on the unit. She denied fever, muscle stiffness. She reports getting along with peers and staff. She denied thoughts of suicide including ideation intent or plan. Objective - Appearance Appearance: Healthy Appearing Dysmorphic Features: No Hygiene: Normal Grooming: Well Kept - Behavior Psychomotor Activities: Normal Exhibits Abnormal Movement: No - Attitude and Relatedness Attitude and Relatedness: Cooperative Eye Contact: Fair - Speech Quality: Unpressured Latencies: Normal Quantity: Appropriate - Mood Patient's Decription of Mood: "Fine" - Affect Observed Affect: Non-labile Affect Consistent with: Euthymia - Thought Process Patient's Thought Process: Goal Directed Thought Content: No Passive Wish, No Suicidal Planning, No Homicidal Ideation, No Paranoid Ideation - Sensorium Experiencing Hallucinations: No, Sensorium is Clear Type of Hallucinations: Visual: No, Auditory: No, Command: No - Level of Consciousness Level of Consciousness: Alert Orientation: Yes Intact, Yes Orientated to Time, Yes Orientated to Place, Yes Orientated to Person - Impulse Control Impulse Control: Tenuous - Insight and Judgement Insight and Judgement: Fair - Group Participation Particating in Group Activities: Yes - Medication Management Medication Management Adherence: Yes Assessment - Assessment Merits Inpatient Hospitalization: For Immediate Safety Clinical Impression: Assessment: 32year old single female with history of bipolar I disorder and PTSD came to the hospital after a suicide attempt and was admitted to the BSU at [facility]. She has been attending group and has shown improvement of clinical response to treatment Plan - Plan Treatment Plan: Name: INDIRA ELKINS Birthdate: 1985 [id number] # Justification for Admission: For immediate safety # Voluntary admission. The patient requires inpatient admission at this time to assure safety, receive treatment and work toward stabilization. #Start Remeron 7.5mg at bedtime #Lactose free diet #Continue lithium 450mg BID #Continue topiramate 25mg BID #[place] level 0.47 #Q30 observation #Staff pass #[place] level results for tomorrow #Plan for discharge tomorrow around 330pm. #Goals before discharge include: Improve sleep. Stopping auditory hallucinations and suicidal ideation. Continued Medication Management: Continue Outpt Medication Medications: Current Medications Acetaminophen (Tylenol Tab*) 650 mg PO Q4H PRN PRN Reason: PAIN; OR TEMP >101 Last Admin: 03/23/18 08:28 Dose: 650 mg Al Hydrox/Mg Hydrox/Simethicone (Maalox Plus*) 30 ml PO Q4H PRN PRN Reason: INDIGESTION Docusate Sodium (Colace Cap*) 100 mg PO BID [facility] Last Admin: 03/25/18 09:01 Dose: 100 mg Lactase (Lactaid Fast Act (Nf)) 3,000 unit PO TID WITH MEALS [facility]; Protocol Last Admin: 03/25/18 08:04 Dose: 3,000 unit [place] Carbonate ([place] Carbonate Tab*) 450 mg PO BID [facility] Last Admin: 03/25/18 09:00 Dose: 450 mg Mirtazapine (Remeron Tab*) 7.5 mg PO BEDTIME PRN PRN Reason: SLEEP Multivitamins/Minerals (Theragran/Minerals Tab*) 1 tab PO DAILY [facility] Last Admin: 03/25/18 09:01 Dose: 1 tab Topiramate (Topamax(*)) 25 mg PO BID [facility] Last Admin: 03/25/18 09:01 Dose: 25 mg - Discharge Plan Discharge Plan: Inpatient Hospitalization
[2018-03-26] MEDS: CMC:Lactase Enzyme (NF) 3,000 UNIT TAB PO SCH ×3 (07:56→17:38)
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
[2018-03-26] MEDS: Multivitamins/Minerals TAB PO SCH (09:24)
[2018-03-26] MEDS: Docusate CAP* 100 MG PO SCH (09:25)
[2018-03-26] MEDS: Lithium Carbonate TAB* 300 MG PO SCH (09:25)
[2018-03-26] MEDS: Topiramate TAB(*) 25 MG PO SCH (09:25)
== END 2018-03-26 17:30 | disposition home or self-care (01) | DRG 885 ==
LOC: ED 11:15 → BSU 19:15
PROVIDERS: ADMIT Psychiatry & Neurology Psychiatry; ATTEND Psychiatry & Neurology Psychiatry
PROC: GZHZZZZ Group Psychotherapy (ICD-10-PCS; principal; 2018-03-19)
DX: F31.5 Bipolar disorder, current episode depressed, severe, with psychotic features (principal); F60.89 Other specific personality disorders; F41.9 Anxiety disorder, unspecified; E03.9 Hypothyroidism, unspecified; F90.9 Attention-deficit hyperactivity disorder, unspecified type; F43.10 Post-traumatic stress disorder, unspecified; N83.209 Unspecified ovarian cyst, unspecified side; Z62.810 Personal history of physical and sexual abuse in childhood; T43.212A Poisoning by selective serotonin and norepinephrine reuptake inhibitors, intentional self-harm, initial encounter; Y92.009 Unspecified place in unspecified non-institutional (private) residence as the place of occurrence of the external cause; Z81.8 Family history of other mental and behavioral disorders; Z90.710 Acquired absence of both cervix and uterus; Z88.6 Allergy status to analgesic agent; Z88.8 Allergy status to other drugs, medicaments and biological substances; Z91.5 Personal history of self-harm; Z83.3 Family history of diabetes mellitus; Z81.1 Family history of alcohol abuse and dependence
CPT/HCPCS: 36415; 80053; 80061; 80178; 80307; 80320; 80329; 81003; 83036; 84443; 84702; 85025; 90853; 93005; 99222; 99231; 99232; 99238; 99284; A9270-GY; G0480; J3475

== ENCOUNTER 2018-05-08 00:42 | Emergency (ER) | payer MEDICAID ==
--- NOTE | 2018-05-08 01:51 | ED ---
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 She is on her third night of Saphris, approx an hour after taking it she felt very shaky, extreme anxiety, and muscle cramping. She took Lorazepam 1.5mg at approx 0000 this date which provided mild relief. She has had previous panic attacks, and feels this is not the same. She has the impulse to get up and move around, but it's controllable at bedside. Additionally, she is withdrawing from Trazodone, which she stopped mid-February; Remeron which she stopped approx 3 weeks ago; and Seroquel 50mg which she stopped three days ago. She says she is healthy otherwise, has not been ill recently. She is scheduled to see her doctor in 2 days. - History Of Current Complaint Chief Complaint: EDGeneral Time Seen by Provider: 05/08/18 01:33 Hx Obtained From: Patient, Family/Correctional Corporal - mother Onset/Duration: Sudden Onset, Lasting Hours, Still Present Timing: Constant Severity Currently: Mild Severity Initially: Moderate Aggravating Factor(s): Medication changes Associated Signs And Symptoms: Positive: Other - pos: very shaky, severe anxiety , muscle cramping - Allergies/Home Medications Allergies/Adverse Reactions: Allergies Allergy/AdvReac Type Severity Reaction Status Date / Time Corticosteroids Allergy See Comment Verified 05/08/18 00:49 (Glucocorticoids) NSAIDS (Non-Steroidal Allergy See Comment Verified 05/08/18 00:49 Anti-Inflamma PMH/Surg Hx/FS Hx/Imm Hx Previously Healthy: No Endocrine/Hematology History: Reports: Hx Thyroid Disease - hypothyroid Denies: Hx Anticoagulant Therapy, Hx Diabetes Cardiovascular History: Denies: Hx Hypercholesterolemia, Hx Hypertension, Hx Pacemaker/ICD Respiratory History: Denies: Hx Asthma, Hx Chronic Obstructive Pulmonary Disease (COPD) GI History: Reports: Hx Irritable Bowel Comment Only: Other GI Disorders - UNCONFRMED REMOTE HISTORY OF IBS History: Denies: Hx Renal Disease Sensory History: Reports: Hx Contacts or Glasses - glasses Denies: Hx Hearing Aid Opthamlomology History: Reports: Hx Contacts or Glasses - glasses Neurological History: Reports: Hx Migraine Denies: Hx Dementia, Hx Seizures Psychiatric History: Reports: Hx Anxiety, Hx Attention Deficit Hyperactivity Disorder, Hx Depression, Hx Inpatient Treatment, Hx Community Mental Health Tx, Hx Bipolar Disorder, Hx Suicide Attempt, Hx Substance Abuse Denies: Hx Eating Disorder - Surgical History Surgery Procedure, Year, and Place: tonsilectomy unsure of date, childhood. laparoscopic uterine proceedure, hysterectomy, hernia repair, ablation - Immunization History Date of Tetanus Vaccine: unknown Infectious Disease History: No Infectious Disease History: Reports: History Other Infectious Disease - genital herpes Denies: Hx Hepatitis, Hx Human Immunodeficiency Virus (HIV), Traveled Outside the [place] in Last 30 Days - Family History Known Family History: Positive: Diabetes, Other - positive: depression Negative: Hypertension - Social History Occupation: Unemployed Lives: With Family Alcohol Use: Rare Hx Substance Use: Yes Substance Use Type: Reports: Marijuana Substance Use Comment - Amount & Last Used: pt stated last using marijuana a long time ago Hx Tobacco Use: No Smoking Status (MU): Never Smoked Tobacco Review of Systems Positive: Other - pos: very shaky. Negative: Fever Musculoskeletal: Other - pos: muscle cramping Positive: Anxious - severe All Other Systems Reviewed And Are Negative: Yes Physical Exam - Summary Physical Exam Summary: Appearance: Well-appearing, Well-nourished, lying in bed comfortably Skin: Warm, dry, no obvious rash Eyes: sclera anicteric, no conjunctival pallor ENT: mucous membranes moist, pharynx appears normal Neck: Supple, nontender Respiratory: Clear to auscultation, no signs of respiratory distress Cardiovascular: Normal S1, S2. No murmurs. Normal distal pulses in tibial and radial bilaterally. Abdomen: Soft, nontender, normal active bowel sounds present Musculoskeletal: Normal, Strength/ROM Intact, Motor function in all 4 extremities is normal and symmetric. There is no rigidity or tremor noted. Neurological: A&Ox3, awake and alert, mentation is normal, speech is fluent and appropriate, Level of consciousness nml. The patient is alert and oriented. Cranial nerves are grossly intact. Gaze is conjugate and without nystagmus. Peripheral vision is intact to confrontation. There are no gross sensory abnormalities to light touch. There is no truncal or fine motor ataxia. Gait is normal. Psychiatric: affect is normal, does not appear anxious or depressed Triage Information Reviewed: Yes Vital Signs On Initial Exam: Initial Vitals Temp Pulse Resp BP Pulse Ox 98.5 F 84 20 118/81 98 05/08/18 00:45 05/08/18 00:45 05/08/18 00:45 05/08/18 00:45 05/08/18 00:45 Vital Signs Reviewed: Yes Diagnostics - Vital Signs Vital Signs Temp Pulse Resp BP Pulse Ox 05/08/18 00:45 98.5 F 84 20 118/81 98 - Laboratory Lab Statement: Any lab studies that have been ordered have been reviewed, and results considered in the medical decision making process. Complex Multi-Symp Course/Dx Course Of Treatment: A 32 y/o F presents to ED for possible medication reaction. She is on her third night of Saphris, approx an hour after taking it she felt very shaky, extreme anxiety, and muscle cramping. She has had previous panic attacks, and feels this is not the same. Additionally, she is withdrawing from Trazodone, which she stopped mid-February; Remeron which she stopped approx 3 weeks ago; and Seroquel 50mg which she stopped three days ago. Will discharge patient home with Benadryl and to f/u as scheduled with her doctor in 2 days. - Diagnoses Provider Diagnoses: Dystonic drug reaction Discharge - Sign-Out/Discharge Documenting (check all that apply): Patient Departure - D/C Patient Received Moderate/Deep Sedation with Procedure: No - Discharge Plan Condition: Stable Disposition: HOME Patient Education Materials: Extrapyramidal Symptoms (ED) Referrals: No Primary Care Phys,NOPCP [Primary Care Provider] - Additional Instructions: Contact your mental health provider in the morning to alert them to this apparent drug reaction. The benadryl and time should help the symptoms remit in the meantime. - Billing Disposition and Condition Condition: STABLE Disposition: Home - Attestation Statements Document Initiated by Alvinibe: Yes Documenting Scribe: Kaden Joshua Provider For Whom Stephanie is Documenting (Include Credential): Dr. Antonio Kingsley MD Scribe Attestation: Kaden Turner scribed for Dr. Antonio Kingsley MD on 05/08/18 at 0595. Scribe Documentation Reviewed: Yes Provider Attestation: The documentation as recorded by the Kaden lópez accurately reflects the service I personally performed and the decisions made by me, Dr. Antonio Kingsley MD Status of Scribe Document: Viewed
[2018-05-08] MEDS ORDERED: diPHENhydraMINE PO* 50 MG PO ONE (01:53)
[2018-05-08 02:37] VITALS: BP 105/64
== END 2018-05-08 02:33 | disposition home or self-care (01) ==
LOC: ED 00:42
DX: G24.09 Other drug induced dystonia (principal); T50.995A Adverse effect of other drugs, medicaments and biological substances, initial encounter; Y92.9 Unspecified place or not applicable; E03.9 Hypothyroidism, unspecified; K58.9 Irritable bowel syndrome, unspecified; F90.9 Attention-deficit hyperactivity disorder, unspecified type; F32.9 Major depressive disorder, single episode, unspecified
CPT/HCPCS: 99282; A9270-GY

== ENCOUNTER 2018-05-14 12:37 | Emergency (ER) | payer OTHER ==
--- NOTE | 2018-05-14 14:22 | ED ---
Psychiatric Complaint - HPI Summary HPI Summary: The pt is a 32 y/o F presenting to the ED with a chief complaint of anxiety. She reports hx of substance addiction, and is currently withdrawing off of her Seroquil (stopped 5 days ago) and Remeron (3wks ago) because she and her psychiatrist are trying to figure out new medications. She reports extreme anxiety, shaking, hot/cold flashes and insomnia. She has a Lorazepam Rx at 0.5mg that helps her, but she has been hospitalized for benzodiazepine withdrawal before which she does not want to go through again. She has hx of hypothyroidism, endometriosis, and chronic pain. She denies SI/HI. - History Of Current Complaint Chief Complaint: EDPsychosocial Time Seen by Provider: 05/14/18 13:59 Hx Obtained From: Patient Hx Last Menstrual Period: 09/12/13 Onset/Duration: Gradual Onset, Lasting Days, Still Present Timing: Constant Severity Initially: Moderate Severity Currently: Severe Character: Anxious, Frustrated - in process of medication changes Aggravating Factor(s): Other - i Alleviating Factor(s): Nothing Associated Signs And Symptoms: Positive: Sleep Disturbance Related History: Positive For: Prior Psychiatric Issues Has Suicidal: Denies: Thoughts Has Homicidal: Denies: Thoughts - Allergies/Home Medications Allergies/Adverse Reactions: Allergies Allergy/AdvReac Type Severity Reaction Status Date / Time Corticosteroids Allergy See Comment Verified 05/14/18 14:14 (Glucocorticoids) NSAIDS (Non-Steroidal Allergy See Comment Verified 05/14/18 14:14 Anti-Inflamma Home Medications: Home Medications LORazepam TAB(*) [Ativan 0.5 MG TAB (*)] 0.5 mg PO BID PRN 05/14/18 [History Confirmed 05/14/18] [place] Carbonate TAB* 600 mg PO BID 05/14/18 [History Confirmed 05/14/18] cloNIDine TAB* [Catapres 0.1 MG TAB*] 0.1 mg PO BID 05/14/18 [History Confirmed 05/14/18] diphenhydrAMINE HCl [Benadryl Allergy] 50 mg PO BEDTIME PRN 05/14/18 [History Confirmed 05/14/18] PMH/Surg Hx/FS Hx/Imm Hx Previously Healthy: No Endocrine/Hematology History: Reports: Hx Thyroid Disease - hypothyroid Denies: Hx Anticoagulant Therapy, Hx Diabetes Cardiovascular History: Denies: Hx Hypercholesterolemia, Hx Hypertension, Hx Pacemaker/ICD Respiratory History: Denies: Hx Asthma, Hx Chronic Obstructive Pulmonary Disease (COPD) GI History: Reports: Hx Irritable Bowel Comment Only: Other GI Disorders - UNCONFRMED REMOTE HISTORY OF IBS History: Reports: Other Problems/Disorders - endometriosis Denies: Hx Renal Disease Musculoskeletal History: Reports: Other Musculoskeletal History - chronic pain Sensory History: Reports: Hx Contacts or Glasses - glasses Denies: Hx Hearing Aid Opthamlomology History: Reports: Hx Contacts or Glasses - glasses Neurological History: Reports: Hx Migraine Denies: Hx Dementia, Hx Seizures Psychiatric History: Reports: Hx Anxiety, Hx Attention Deficit Hyperactivity Disorder, Hx Depression, Hx Inpatient Treatment, Hx Community Mental Health Tx, Hx Bipolar Disorder, Hx Suicide Attempt, Hx Substance Abuse Denies: Hx Eating Disorder - Surgical History Surgery Procedure, Year, and Place: tonsilectomy unsure of date, childhood. laparoscopic uterine proceedure, hysterectomy, hernia repair, ablation - Immunization History Date of Tetanus Vaccine: unknown Infectious Disease History: No Infectious Disease History: Reports: History Other Infectious Disease - genital herpes Denies: Hx Hepatitis, Hx Human Immunodeficiency Virus (HIV), Traveled Outside the [place] in Last 30 Days - Family History Known Family History: Positive: Diabetes, Other - positive: depression Negative: Hypertension - Social History Alcohol Use: Rare Hx Substance Use: Yes Substance Use Type: Reports: Marijuana Substance Use Comment - Amount & Last Used: pt stated last using marijuana a long time ago Hx Tobacco Use: No Smoking Status (MU): Never Smoked Tobacco Review of Systems Positive: Fever - subjective, Chills, Other - shaking Psychological: Other - insomnia Positive: Anxious All Other Systems Reviewed And Are Negative: Yes Physical Exam - Summary Physical Exam Summary: VITAL SIGNS: Reviewed. GENERAL: Patient is a well-developed and nourished female who is lying comfortable in the stretcher. Patient is not in any acute respiratory distress. HEAD AND FACE: No signs of trauma. No ecchymosis, hematomas or skull depressions. No sinus tenderness. EYES: PERRLA, EOMI x 2, No injected conjunctiva, no nystagmus. EARS: Hearing grossly intact. Ear canals and tympanic membranes are within normal limits. MOUTH: Oropharynx within normal limits. NECK: Supple, trachea is midline, no adenopathy, no JVD, no carotid bruit, no c- spine tenderness, neck with full ROM. CHEST: Symmetric, no tenderness at palpation LUNGS: Clear to auscultation bilaterally. No wheezing or crackles. CVS: Regular rate and rhythm, S1 and S2 present, no murmurs or gallops appreciated. ABDOMEN: Soft, non-tender. No signs of distention. No rebound no guarding, and no masses palpated. Bowel sounds are normal. EXTREMITIES: FROM in all major joints, no edema, no cyanosis or clubbing. NEURO: Alert and oriented x 3. No acute neurological deficits. Speech is normal and follows commands. SKIN: Dry and warm PSYCH: Agitated, nervous, crying. Denies SI/HI. Vital Signs On Initial Exam: Initial Vitals Temp Pulse Resp BP Pulse Ox 99.4 F 76 18 141/79 99 05/14/18 12:49 05/14/18 12:49 05/14/18 12:49 05/14/18 12:49 05/14/18 12:49 Diagnostics - Vital Signs Vital Signs Temp Pulse Resp BP Pulse Ox 05/14/18 12:49 99.4 F 76 18 141/79 99 - Laboratory Result Diagrams: 05/14/18 14:28 05/14/18 14:28 Lab Statement: Any lab studies that have been ordered have been reviewed, and results considered in the medical decision making process. Course/Dx - Course Assessment/Plan: Blood work w/o a significant abnormality. She is medically cleared. She is awaiting for a MHE. Patient is hemodynamically stable and A+O x 3. Patient will be signed out to Dr. Moran to follow-up the mental health ablation. - Differential Dx/Clinical Impression Provider Diagnosis: Bipolar disorder Discharge - Sign-Out/Discharge Documenting (check all that apply): Sign-Out Patient Signing out patient TO: Violetta Moran Patient Received Moderate/Deep Sedation with Procedure: No - Discharge Plan Condition: Stable Disposition: HOME Patient Education Materials: Bipolar Disorder (ED) Referrals: Elías De La Fuente MD [Primary Care Provider] - 3 Days Additional Instructions: PLEASE RETURN TO THE ED TO IMMEDIATELY FOR WORSENING OR CONCERNING SYMPTOMS. - Billing Disposition and Condition Condition: STABLE Disposition: Home - Attestation Statements Document Initiated by Scribe: Yes Documenting Scribe: Starr Alex Provider For Whom Scribe is Documenting (Include Credential): Ismael Valenzuela MD. Scribe Attestation: IStarr, scribed for Ismael Valenzuela MD. on 05/15/18 at 1815. Scribe Documentation Reviewed: Yes Provider Attestation: The documentation as recorded by the scribe, Starr Alex accurately reflects the service I personally performed and the decisions made by me, Ismael Valenzuela MD. Status of Scribe Document: Viewed
[2018-05-14 14:42] LABS: ABS Basophils 0.1 10^3/ul (0-0.2); ABS Eosinophils 0.1 10^3/ul (0-0.6); ABS Lymphocytes 1.5 10^3/ul (1.0-4.8); ABS Monocytes 0.4 10^3/ul (0-0.8); ABS Neutrophils 6.1 10^3/ul (1.5-7.7); ABS Nucleated RBC 0 10^3/ul; Eosinophil % 1.4 %; Hematocrit 38 % (33-41); Lymphocyte % 18.6 %; Mean Corpuscular HGB Conc 34 g/dL (31-36); Mean Corpuscular Hemoglobin 33 pg (27-31); Mean Corpuscular Volume 98 fL (80-97); Mean Platelet Volume 9.1 fL (7.4-10.4); Nucleated Red Blood Cells % 0.1; Platelet Count 253 10^3/uL (150-450); Red Cell Distribution Width 13 % (10.5-15); White Blood Count 8.2 10^3/uL (3.5-10.8)
[2018-05-14 14:56] LABS: Urine Appearance Cloudy; Urine Bilirubin Negative (Negative); Urine Blood Negative (Negative); Urine Color Yellow; Urine Glucose Negative (Negative); Urine Ketones Negative (Negative); Urine Nitrite Negative (Negative); Urine Protein Negative (Negative); Urine Specific Gravity 1.015 (1.010-1.030); Urine Urobilinogen Negative (Negative)
[2018-05-14 15:01] LABS: ALT 21 U/L (7-52); AST 23 U/L (13-39); Albumin 4.6 g/dL (3.2-5.2); Albumin/Globulin Ratio 1.8 (1-3); Alkaline Phosphatase 56 U/L (34-104); Anion Gap 5 mmol/L (2-11); BUN/Creatinine Ratio 18.3 (8-20); Blood Urea Nitrogen 13 mg/dL (6-24); CO2 Carbon Dioxide 25 mmol/L (22-32); Calcium 9.4 mg/dL (8.6-10.3); Chloride 108 mmol/L (101-111); EGFR African American 115.4 (>60); EGFR Non-African American 95.4 (>60); Globulin 2.5 g/dL (2-4); Glucose 107 mg/dL (70-100); Potassium 3.8 mmol/L (3.5-5.0); Sodium 138 mmol/L (135-145); Total Protein 7.1 g/dL (6.4-8.9)
[2018-05-14 15:14] LABS: Barbiturates Urine Screen None Detected (None Detect); Benzodiazepine Urine Screen None Detected (None Detect); Urine Cannabinoids Screen None Detected (None Detect)
[2018-05-14 15:18] LABS: Acetaminophen < 15 mcg/mL; Alcohol < 10 mg/dL (<10); Salicylate < 2.50 mg/dL (<30)
[2018-05-14 15:34] LABS: TSH (Thyroid Stimulating Horm) 1.55 mcIU/mL (0.34-5.60)
--- NOTE | 2018-05-14 19:28 | ED ---
Progress - Progress Note Progress Note: This patient was signed out from Dr. Valenzuela to Dr. Moran upon shift change, pending MHE. MHE done at [address] Cheema. The patient will be discharged with dx of bipolar disorder. The patient understands and agrees with this plan. Course/Dx - Course Course Of Treatment: This patient was signed out from Dr. Valenzuela to Dr. Moran upon shift change, pending MHE. MHE done at [address] Cheema. The patient will be discharged with dx of bipolar disorder. The patient understands and agrees with this plan. - Diagnoses Provider Diagnoses: Bipolar disorder Discharge - Sign-Out/Discharge Documenting (check all that apply): Patient Departure - discharge Patient Received Moderate/Deep Sedation with Procedure: No - Discharge Plan Condition: Stable Disposition: HOME Patient Education Materials: Bipolar Disorder (ED) Referrals: Elías De La Fuente MD [Primary Care Provider] - 3 Days Additional Instructions: PLEASE RETURN TO THE ED TO IMMEDIATELY FOR WORSENING OR CONCERNING SYMPTOMS. - Billing Disposition and Condition Condition: STABLE Disposition: Home - Attestation Statements Document Initiated by Stephanie: Yes Documenting Scribe: Jey Parks Provider For Whom Stephanie is Documenting (Include Credential): Violetta Moran MD Scribe Attestation: Jey Turner, ashibed for Violetta Moran MD on 05/15/18 at 0620. Scribe Documentation Reviewed: Yes Provider Attestation: The documentation as recorded by the Jey lópez accurately reflects the service I personally performed and the decisions made by , Violetta Moran MD Status of Scribe Document: Viewed
[2018-05-14 23:01] VITALS: BP 118/65
== END 2018-05-14 23:02 | disposition home or self-care (01) ==
LOC: ED 12:37
DX: F31.9 Bipolar disorder, unspecified (principal); E03.9 Hypothyroidism, unspecified; K58.9 Irritable bowel syndrome, unspecified; F41.9 Anxiety disorder, unspecified; F90.9 Attention-deficit hyperactivity disorder, unspecified type; Z91.5 Personal history of self-harm; Z88.6 Allergy status to analgesic agent; Z88.8 Allergy status to other drugs, medicaments and biological substances; Z79.899 Other long term (current) drug therapy
CPT/HCPCS: 36415; 80053; 80307; 80320; 80329; 81003; 84443; 85025; 99284; G0480